=== PATIENT | female | born 1965 | race Caucasian/White ===

== ENCOUNTER 2025-03-03 12:00 | Outpatient (OUT) | payer BC, SELFPAY | END 2025-03-03 12:01 | disposition home or self-care (01) | LOC: SLEEP 03-04 11:34 | DX: G47.33 Obstructive sleep apnea (adult) (pediatric) (principal) | CPT/HCPCS: 95806 ==

== ENCOUNTER 2025-08-20 14:30 | Outpatient (OUT) | payer BC, SELFPAY ==
--- OUTSIDE RECORDS SUMMARY | 2025-07-03 13:57 | XMS_ITS ---
Author Organization OH[facility] Care Team Providers Care Portable Pinch Riveter Name Role Phone LLUVIA PURCELL Referring Unavailable SERVICES, [facility] Unava ilable LY LOPEZ Attending Unavailable LY LOPEZ Referring Unavailable SERVICES, [facility] Unava ilable [place] Referring Unavailable SERVICES, [facility] Unava ilable LLUVIA PURCELL Referring Unavailable SERVICES, [facility] Unava ilable LLUVIA PURCELL Admitting Unavailable LLUVIA PURCELL Attending Unavailable REGAN MCDONNELL Primary Care Unavailable SUMAN MENDEZ Attending Unavailable SERVICES, [facility] Unava ilable SUMAN MENDEZ Attending Unavailable SERVICES, [facility] Unava ilable LLUVIA PURCELL Attending Unavailable SERVICES, [facility] Unava ilable [place] Referring Unavailable SERVICES, [facility] Unava ilable PETROS FRANCOIS Attending Unavailabl e SERVICES, [facility] LLUVIA Benavidez Attending Unavailable LLUVIA PURCELL Referring Unavailable SERVICES, [facility] UnaNANETTE Cherry Attending Unavailable KENNA THAYER Attending Unavailable Purpose PROBLEMS DATE TYPE CONDITION / CODE ATTENDING STATUS [facility] 07/03/2025 Unknown Encounter for sc reening mammogram for malignant neoplasm of breast / Z12.31(ICD-10) LLUVIA PURCELL [facility] 05/29/2025 Unknown Follow-up / FREETEXT(AOF) RANCHO TANGDERROGERIO Morrison [facility] 01/27/2025 Unknown High grade squam 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) / R87.613(ICD-10) LLUVIA PURCELL [facility] 01/27/2025 Unknown Post-op / FREETEXT(AOF) LLUVIA PURCELL [facility] 12/30/2024 Unknown abnormal PAP / UNK(Unknown) LLUVIA PURCELL [facility] 12/02/2024 Unknown Pain in right le g / M79.604(ICD-10) [facility] 12/02/2024 Unknown Localized swelli ng, mass and lump, right lower limb / R22.41(ICD-10) [facility] 06/12/2020 Unknown Supraventricular tachycardia, unspecified / I47.10(ICD-10) [facility] 06/12/2020 Unknown Abnormal electrocardiogram (ECG) (EKG) / R94.31(ICD-10) [facility] 09/02/2024 Unknown Encounter for ot her preprocedural examination / Z01.818(ICD-10) [facility] PROCEDURES No Procedure Records Found VITAL SIGNS No Vital Signs Records Found RESULTS MAMM SCREENING BILATERAL W CAD Observed: 07/03/2025 1:57 PM Status: COMPLETED Source: [facility] MAMM SCREENING BILATERAL W C AD LISA ALMEIDA 1965 [id number] EXAM: MAMM SCREENING BILATERAL W CAD, 07/03/2025 1:57 PM CLINICAL INDICATIONS: Screening, Encounter for screening mammogram for malignant neoplasm of breast COMPARISON: Multiple prior mammograms were viewed for comparison dating back to 03/28/2022 TECHNIQUE: Bilateral digital tomosynthesis MLO and CC views of the breasts were obtained, with creation of synthetic 2D views. Computer aided detection was utilized. FINDINGS: There are scattered areas of fibroglandular density. There are no suspicious masses, calcifications, or areas of architectural distortion. IMPRESSION: No mammographic evidence of malignancy. BI-RADS: BI-RADS 1 - Negative RECOMMENDATION: Routine screening mammogram in 1 year. RISK ASSESSMENT: TC Lifetime risk: 6.5%. The patient's reported personal and family medical history was used calculate their Tyrer-Cuzick lifetime risk of malignancy. Scores less than 20% are not considered high risk per ACR guidelines and patient should continue with the above recommendation. Finalized by Timothy Garber MD on 07/07/2025 12:49 PM 1 b MAMM 1 YR MR THIGH RT WO CONT Observed: 03/28/2025 12:36 PM Status: COMPLETED Source: [facility] MR THIGH RT WO CONT Clinical history: Leg pain. MRI right thigh without contrast: 03/28/2025 COMPARISON: None PROCEDURE: Multiplanar multisequence imaging of the leg was performed without intravenous contrast. FINDINGS: Fluid signal is present along the distal gluteus minimus with focal tendon thinning and tendinosis (series 6 images 6-9, series 18 images 14-16). There is heterogeneous signal within the gluteus medius distally compatible with tendinosis. Thickening is present within the greater trochanteric bursa. Thigh muscles including the tensor fascia rayna and iliotibial tract as well as the distal gluteus medius og appear within normal limits. Muscles are visualized to the quadriceps attachment at the patella with mild heterogeneity and fluid signal in this region. No muscular tendinous discontinuity is evident Subcutaneous irregularity in the gluteal region is compatible with fat necrosis likely related to prior trauma or subcutaneous injection (series 9 image 1). No other subcutaneous or cutaneous mass is evident within the field of visualization. A portion of the subcutaneous tissues are omitted from the pulpw-ed-aalk No osseous abnormalities evident within the visualized pelvis or the femur. There are degenerative findings at the medial and patellofemoral compartments of the knee. The sciatic nerve appears within normal. IMPRESSION: Findings compatible with tendinosis within the gluteus medius and minimus with a partial tear of the distal gluteus medius minimus and inflammatory changes in the adjacent greater trochanteric bursa. Mild tendinosis within the distal quadriceps. Degenerative changes at the knee, not fully characterize. Finalized by Manuel Lloyd MD on 04/02/2025 11:11 AM SURGICAL PATHOLOGY Collected: 1:09 PM Status: COMPLETED Source: [facility] TYPE CODE TESTS RESULT OUT OF RANGE REFERENCE UNITS LAB [id number] Surgical Pathology Result Comment: [facility] [address] [place] [address] Surgical Pathology Consultation Patient Name:LISA ALMEIDA:1965 (Age: 59)Gender:FTaken:12/30/2024Reported:01/07/2025Physician(s):Lluvia Purcell M.D. ([phone])Copy To: Rec. #:[id number]: #[id number] Final Pathologic Diagnosis 1. 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 Margins are negative 2. Endocervical curettings: Fragments of poorly preserved mucosa with dysplastic changes Endocervical mucosa is not identified Report Electronically Signed Out claudiak/01/07/2025Kim Marcelino MD Interpretation performed at [facility], [address] [place] [address], License number: [id number]. Clinical History Abnormal pap. 1. Marked at 12 o'clock. Gross Description 1. Received in formalin labeled, ELLE, cervical cone is an oriented portion of cervical stroma surface by cervical mucosa, 1.1 x 0.8 x 0.4 cm, with a stitch at 12:00. The mucosal surfaces pink-canada smooth glistening with a pinpoint os measuring less than 0.1 cm in greatest dimension, and surrounded by slightly granular mucosa. The endocervical margin is inked orange and the remainder of the resection margin is inked black and the specimen is into anterior and posterior have and each are serially sectioned. Sections are submitted in cassettes A-D, as follows: A- anterior half B- posterior half Fixation Time: Tissue removed from patient: 1309 Time specimen placed in formalin: 1317 Cold ischemic time: 8 minutes Total fixation time: 29.25 hours (2, ns, [id number], m1) TB 2. Received in formalin labeled, PIPER, ECC are pale-canada delicate to friable soft tissue fragments mixed with hemorrhagic material, 0.2-0.3 cm in greatest dimension. The specimens are filtered and submitted in single cassette. (1, ns, [id number], m1) TB tgb/12/31/2024NSK Specimen(s) Received 1: Cervical cone 2: Endocervical curettings Fee Codes(s): 1; 48084 2; 75529 US EXT NON-VASC RT LIMITED Observed: 12/02/2024 1:03 PM Status: COMPLETED Source: [facility] US EXT NON-VASC RT LIMITED US EXT NON-VASC RT LIMITED Clinical history:Right leg pain; Localized swelling, mass, or lump of right lower extremity palpable mass Comparison: None. Findings: Real-time sonographic evaluation of the region of concern demonstrates isoechoic subcutaneous lesion measuring 1.7 x 0.4 x 2.1 cm possibly related to subcutaneous lipoma or prior trauma. Impression: Subcutaneous lesions in the region of concern which could possibly represent a small subadjacent lipoma or sequela prior trauma. Clinical correlation is recommended. Continued clinical examination and follow-up of the palpable lesion to document stability or resolution is recommended. Finalized by Raymundo Wallace MD on 12/03/2024 12:38 PM ALLERGIES DATE TYPE / CODE NAME / CODE REACTION SEVERITY SOURCE Drug Class/276906141(SNO MED CT) NO KNOWN ALLERGIES [facility] ENCOUNTERS ADMIT/DISCHARGE ACCOUNT NUMBER ADMITTING ENCOUNTER CLASS LOCATION SOURCE 07/03/2025/07/03/20 25 [id number] Ambulatory Building:PF M_MAMM [facility] 05/29/2025/05/29/20 25 [id number] Ambulatory Buildin 14 [facility] 04/28/2025/04/28/20 [id number] Ambulatory Building:SW SORTHO [facility] 03/28/2025/03/28/20 [id number] Ambulatory Building:PF M_MRI [facility] 03/17/2025/03/17/20 [id number] Ambulatory Building:NO MS DERM [facility] 01/27/2025/01/28/20 25 [id number] [address] Buildin [address] [facility] 12/30/2024/12/30/19 25 [id number] [facility] 12/30/2024/12/30/19 25 [id number] [facility]30[facility] 25 [id number] LLUVIA PURCELL Inpatient Encounter [facility] PO[facility]: [facility] 12/09/2024/12/09/19 25 [id number] Ambulatory Building:[facility] 12/02/2024/12/02/19 [id number] [facility] 09/02/2024/09/02/20 24 [id number] Ambulatory Building:[facility] 09/02/2024/09/02/20 24 [id number] Ambulatory Building:[facility] FUNCTIONAL STATUS No Functional Status Records Found EQUIPMENT No Equipment Records Found PAYERS ENCOUNTER GUARANTOR PAYER SUBSCRIBER SOURCE 07/03/2025 LIAS PARRA: [id number] 11/21 [place], [place] [address]Izn: (CQ) Primary Insurance:[facility] Number: [id number] edi Date:2024-11-20 LISA WYNNE GIULIANOB: [id number] [address] [facility] [place] [address]Lnv: (WP) [facility] 05/29/2025 LISA WYNNE GIULIANOB: /[address] [facility] [place] [address]Cpn: (HP) [facility]: [id number] edi Date:2024-11-20 LISA WYNNE GIULIANOB: [id number] [address] [facility] [place] [address]Crd: (WP) [facility] 04/28/2025 LISA Hameed GIULIANOB: 11/[address] [place] [place] [address]Uuu: (HP) (WP) Primary Insurance:[facility] Number: [id number] edi Date:2024-11-20 LISA Hameed GIULIANOB: [id number] [address] [place] [place] [address] [facility] 03/28/2025 LISA WYNNE AIDA: [address] [place], [place] [address]Kst: (HP) (WP) [facility] Number: [id number] edi Date:2024-11-20 LISA WYNNE GIULIANOB: [id number] [address] [facility] [place] [address]Ukz: (WP) [facility] 03/17/2025 LISA GIULIANOB: /[address] [place] [place] [address]Awk: (HP) (WP) [facility] Number: [id number] edi Date:2024-11-20 LISA AIDA: [id number] [address] [place] [address] [facility] 01/27/2025 LISA IVERSONJacob PARRA: [address] [place], [place] [address]Ekt: (HP) (WP) Primary Insurance:[employer] OPolicy Number: [id number] edi Date:2024-11-20 LISA IVERSONJacob PARRA: [id number] [address] [place], [place] [address]Lqj: (WP) [facility] 12/30/2024 LISA PARRA: 11[address] [place], [place] [address]Ljj: (HP) (WP) [facility] Insurance[facility] Number: [id number] edi Date:2024-11-20 LISA SHERRELL PARRA: [id number] [address] [place], [place] [address]Roc: (WP) [facility] 12/30/2024 LISA PARRA: 11[address] [place], [place] [address]Oxn: (HP) (WP) Primary Insurance:[employer] OPolicy Number: [id number] edi Date:2024-11-20 LISAFRANK PARRA: [id number] [address] [place], [place] [address]Uni: (WP) [facility] 12/30/2024 LISA PARRA: 11[address] [place], [place] [address]Xlp: (HP) (WP) Primary Insurance:[employer] HMOPolicy Number: [id number] edi Date:2024-11-20 LISA WYNNE GIULIANOB: [id number] [address] [place], [place] [address]Qnf: (WP) [facility] 12/09/2024 LISA WYNNE GIULIANOB: 11[address] [place], [place] [address]Aaz: (HP) (WP) Primary Insurance:[employer] HMOPolicy Number: [id number] edi Date:2024-11-20 LISA WYNNE AIDA: [id number] [address] [place], [place] [address]Tsl: (WP) [facility] 12/02/2024 LISA WYNNE GIULIANOB: 11/[address] [place], [place] [address]Hun: (HP) (WP) Primary Insurance:[employer] HMOPolicy Number: [id number] edi Date:2024-11-20 LISA WYNNE AIDA: [id number] [address] [place], [place] [address]Vbr: (WP) [facility] 09/02/2024 LISA WYNNE AIDA: 11[address] [place], [place] [address]Vja: (HP) (WP) Primary Insurance:ANDREW AKERS [facility]: [id number] e Date:2024-07-21 LISA IVERSONJacob NOBLESB: [id number] [address] [place], [place] [address]Ixo: (WP) [facility] 09/02/2024 LISA WYNNE AIDA: [id number] [address] [place], [place] [address]Ekx: (HP) (WP) Primary Insurance:[facility] Number: [id number] e Date:2024-07-21 LISA PARRA: [id number] [address] [place], [place] [address]Qqs: (WP) [facility] SOCIAL HISTORY No Social History Records Found FAMILY HISTORY No Family History Records Found ADVANCE DIRECTIVES No Advanced Directives Records Found INFORMATION SOURCE DATE CREATED AUTHOR AUTHOR'S NIRANJAN ABREU 08/20/2025 MARY
== END 2025-08-20 14:31 | disposition home or self-care (01) ==
LOC: SLEEP 14:30
PROVIDERS: Visit Provider Psychiatry & Neurology Neurology
DX: G47.33 Obstructive sleep apnea (adult) (pediatric) (principal)